=== PATIENT | male | born 1965 | race Two or more races ===

== ENCOUNTER 2024-02-09 15:35 | Emergency (ER) | payer OTHER ==
[~2024-02-09] VITALS: Ht 190.5 cm; Wt 93.9 kg
[2024-02-09] MEDS ORDERED: IBUP-1455 PO (16:01)
[2024-02-09] MEDS ORDERED: HYDR-4798 PO (16:01)
[2024-02-09] MEDS: ONDANSETRON ODT 4 MG TAB PO ONE (16:04)
[2024-02-09] MEDS: HYDROmorphone HCL 2 MG/ML VL/or syr IM ONE (16:06)
[2024-02-09] MEDS: SODIUM CHLORIDE 0.9% 1,000 ML IV ONE (16:45)
[2024-02-09 18:04] VITALS: BP 110/52; PULSE 60; RESP 19; TEMP 98.3; O2SAT 98
== END 2024-02-09 18:09 | disposition home or self-care (01) ==
LOC: ER 15:35
DX: S52.592A Other fractures of lower end of left radius, initial encounter for closed fracture (principal); W01.0XXA Fall on same level from slipping, tripping and stumbling without subsequent striking against object, initial encounter; Y93.89 Activity, other specified; Y92.69 Other specified industrial and construction area as the place of occurrence of the external cause; Y99.8 Other external cause status
CPT/HCPCS: 29125; 96372; 99283; J1171; J7030; Q0162

== ENCOUNTER 2024-02-17 08:07 | Emergency (ER) | payer OTHER ==
[~2024-02-17] VITALS: Ht 190.5 cm; Wt 93.6 kg
[~2024-02-17 08:07] MED LIST: HYDR-4798 PO; IBUP-1455 PO
[2024-02-17 08:30] VITALS: BP 139/69; PULSE 58; RESP 18; TEMP 97.8; O2SAT 93
== END 2024-02-17 09:06 | disposition home or self-care (01) ==
LOC: ER 08:07
DX: S52.592A Other fractures of lower end of left radius, initial encounter for closed fracture (principal); X58.XXXA Exposure to other specified factors, initial encounter; Y93.89 Activity, other specified; Y92.89 Other specified places as the place of occurrence of the external cause; Y99.8 Other external cause status
CPT/HCPCS: 29125